=== PATIENT | female | born 1935 | race Caucasian/White ===

== ENCOUNTER 2017-05-02 14:38 | Inpatient (IN) | payer MEDICARE, OTHER ==
[~2017-05-02] VITALS: Ht 172.7 cm; Wt 75.5 kg
[~2017-05-02 14:38] MED LIST: ACET325S8 PO; CARV6.252 PO; ENOX30P SQ; FERR324T4 PO; FLUO20TA20 PO; GUAI600 PO; Hydrocodone/Acetaminophen PO; LEVA750T PO; LEVE750T11 PO; LEVO50TA4 PO; MAGN400T PO; MEMA28CA PO; OMEP20TA39 PO; PRED1TAB PO; WAL-10TA2 PO; ZAFI1TAB2 PO; [UNRECOGNIZED DRUG - CODE] TOP
--- NOTE | 2017-05-02 14:48 | PD ---
HPI Chief Complaint: cough Time Seen by Provider: 14:45 Travel History International Travel<30 days: No Contact w/Intl Traveler<30days: No History of Present Illness HPI 82 y/o female presents with cough over the past 3 days. Her temp today was 99. Patient cannot give me history and she is at her baseline per the long-term staff the ambulance team states. She did not receive any treatments in route. Her vitals were stable. PFSH Past Medical History Arthritis: Yes Depression: Yes COPD: Yes GERD: Yes Hypertension: Yes Psychiatric: Yes Migraines: Yes Renal Failure: Yes (RENAL FAILURE THAT RESOLVED, NORMAL FUNCTION NOW) Seizures: Yes Past Surgical History Abdominal Surgery: Yes (CHOLESTECTOMY) Appendectomy: Yes Cholecystectomy: Yes Gynecologic Surgery: Yes (HYSTERECTOMY) Hysterectomy: Yes Social History Alcohol Use: Yes Tobacco Use: No Substance Use: No Allergies-Medications (Allergen,Severity, Reaction): Coded Allergies: *MDRO Multi-Drug Resistant Organism (Verified Adverse Reaction, Unknown, ) ESBL E.Coli (urine)-06/03/16 Reported Meds & Prescriptions Reported Meds & Active Scripts Active Levaquin 750 Mg Tab (Levofloxacin) 750 Mg Tab 750 Mg PO Q48H Lovenox (Enoxaparin Sodium) 30 Mg/0.3 Ml Inj 30 Mg SQ Q24H [Hydrocodone/Acetaminophen] 1 TAB Tab 1 Tab PO Q4H PRN Reported Prednisone 1 Mg Tab 5 Mg PO DAILY Mucinex 600 Mg Tab (Guaifenesin) 600 Mg Tabcr 600 Mg PO BID 7 Days Accolate 20 mg (Zafirlukast) 20 Mg Tab 10 Mg PO BID TAKE AT LEAST 1 HOUR BEFORE OR 2 HOURS AFTER MEALS Fluoxetine (Fluoxetine HCl) 20MG Cap 20 Mg PO DAILY Hm Omeprazole (Omeprazole) 20 Mg Tab 20 Mg PO DAILY Acetaminophen 325 Mg Tab 650 Mg PO Q4HR Boudreauxs Butt Paste (Zinc Oxide (Topical)) 16 % Oin 16 % TOP BID Levetiracetam Er (Levetiracetam) 750 Mg Tab 750 Mg PO BID Carvedilol 6.25 mg (Carvedilol) 6.25 Mg Tab 1 Tab PO BID Namenda XR (Memantine HCl) 28 Mg Caper 28 Mg PO DAILY Administer without regard to meals. Extended release capsules may be swallowed whole or entire contents of capsule may be sprinkled on applesauce and swallowed immediately; do not chew, crush, or divide. Mag-Ox 400 (Magnesium Oxide) 400 Mg Tab 400 Mg PO DAILY 30 Days Loratadine 10 Mg Tab 10 Mg PO DAILY Levothyroxine 50 mcg (Levothyroxine Sodium) 50 Mcg Tab 50 Mcg PO DAILY Ferrous Sulfate 325 Mg Tab 325 Mg PO DAILY Review of Systems ROS Limitations: Poor Historian Except as stated in HPI: all other systems reviewed are Neg Physical Exam Exam Limitations: Poor Historian Narrative GENERAL: 82-year-old female with frequent cough noted SKIN: Focused skin assessment warm/dry. HEAD: Atraumatic. Normocephalic. EYES: No scleral icterus. No injection or drainage. ENT: No nasal bleeding or discharge. Mucous membranes pink and moist. NECK: Trachea midline. No JVD. CARDIOVASCULAR: Regular rate and rhythm. No murmur appreciated. RESPIRATORY: No accessory muscle use. Coarse Breath sounds equal bilaterally. GASTROINTESTINAL: Abdomen nondistended. NEUROLOGICAL: Moves extremities, eyes open Data Data Last Documented VS Vital Signs Date Time Temp Pulse Resp B/P (MAP) Pulse Ox O2 Delivery O2 Flow Rate FiO2 05/02/17 16:14 94 18 120/59 (79) 94 Room Air 05/02/17 14:56 99.1 Orders Orders Complete Blood Count With Diff (05/02/17 14:46) Comprehensive Metabolic Panel (05/02/17 14:46) B-Type Natriuretic Peptide (05/02/17 14:46) Prothrombin Time / Inr (Pt) (05/02/17 14:46) Magnesium (Mg) (05/02/17 14:46) Influenzae A/B Antigen (05/02/17 14:46) Iv Access Insert/Monitor (05/02/17 14:46) Ecg Monitoring (05/02/17 14:46) Oximetry (05/02/17 14:46) Chest, Single Ap (05/02/17 14:46) Sodium Chloride 0.9% Flush (Ns Flush) (05/02/17 15:00) Methylprednisolone So Succ Inj (Solumedr (05/02/17 15:00) Albuterol-Ipratropium Neb (Duoneb Neb) (05/02/17 15:00) Lactic Acid (05/02/17 14:46) Piperacil-Tazo 4.5 Gm Premix (Zosyn 4.5 (05/02/17 15:38) Azithromycin Inj (Zithromax Inj) (05/02/17 15:38) Admit Order (Ed Use Only) (05/02/17 16:20) Labs Laboratory Tests Test 05/02/17 15:00 White Blood Count 17.2 TH/MM3 Red Blood Count 4.03 MIL/MM3 Hemoglobin 10.6 GM/DL Hematocrit 34.0 % Mean Corpuscular Volume 84.3 FL Mean Corpuscular Hemoglobin 26.2 PG Mean Corpuscular Hemoglobin Concent 31.1 % Red Cell Distribution Width 16.1 % Platelet Count 412 TH/MM3 Mean Platelet Volume 8.0 FL Neutrophils (%) (Auto) 79.0 % Lymphocytes (%) (Auto) 11.3 % Monocytes (%) (Auto) 6.8 % Eosinophils (%) (Auto) 2.4 % Basophils (%) (Auto) 0.5 % Neutrophils # (Auto) 13.6 TH/MM3 Lymphocytes # (Auto) 2.0 TH/MM3 Monocytes # (Auto) 1.2 TH/MM3 Eosinophils # (Auto) 0.4 TH/MM3 Basophils # (Auto) 0.1 TH/MM3 CBC Comment DIFF FINAL Differential Comment Prothrombin Time 10.7 SEC Prothromb Time International Ratio 1.1 RATIO Blood Urea Nitrogen 21 MG/DL Creatinine 1.49 MG/DL Random Glucose 106 MG/DL Total Protein 7.4 GM/DL Albumin 3.1 GM/DL Calcium Level 8.6 MG/DL Magnesium Level 2.0 MG/DL Alkaline Phosphatase 129 U/L Aspartate Amino Transf (AST/SGOT) 19 U/L Alanine Aminotransferase (ALT/SGPT) 25 U/L Total Bilirubin 0.3 MG/DL Sodium Level 142 MEQ/L Potassium Level 3.8 MEQ/L Chloride Level 110 MEQ/L Carbon Dioxide Level 22.6 MEQ/L Anion Gap 9 MEQ/L Estimat Glomerular Filtration Rate 34 ML/MIN Lactic Acid Level 1.7 mmol/L [facility] Medical Decision Making Medical Screen Exam Complete: Yes Emergency Medical Condition: Yes Medical Record Reviewed: Yes (Past history confirmed) Interpretation(s) CBC & BMP Diagram 05/02/17 15:00 Total Protein 7.4, Albumin 3.1 L, Calcium Level 8.6, Magnesium Level 2.0, Alkaline Phosphatase 129 H, Aspartate Amino Transf (AST/SGOT) 19, Alanine Aminotransferase (ALT/SGPT) 25, Total Bilirubin 0.3 Last 24 hours Impressions Chest X-Ray 05/02/17 1446 Signed Impressions: Service Date/Time: Tuesday, May 02, 2017 15:13 - CONCLUSION: Questionable bibasilar atelectasis and/or infiltrate. Aster Flowers MD Differential Diagnosis Pneumonia, URI, COPD exacerbation Narrative Course We will check blood work, chest x-ray, influenza and dose with Solu-Medrol, duonebs and reevaluate Given elevated white count and chest x-ray coming from long-term will dose with Zosyn and azithromycin in place in the hospital for monitoring Physician Communication Physician Communication dr zabala agrees to admit Diagnosis Primary Impression: Pneumonia Qualified Codes: J18.9 - Pneumonia, unspecified organism Additional Impressions: Leukocytosis Qualified Codes: D72.829 - Elevated white blood cell count, unspecified COPD exacerbation Renal insufficiency Admitting Information Admitting Physician Requests: Observation Randi Westfall MD May 02, 2017 14:48
[2017-05-02 14:56] VITALS: BP 173/67; PULSE 83; RESP 20; TEMP 99.1; O2SAT 94
[2017-05-02] MEDS: SODIUM CHLORIDE 0.9% FLUSH 10 ML FLUSH IVF PRN (14:59)
[2017-05-02 15:00] VITALS: RESP 16; O2SAT 100
[2017-05-02] MEDS ORDERED: methylPREDNISolone SOD SUCC 125 MG/2 ML VIAL IV PUSH ONE (15:00)
[2017-05-02 15:14] LABS: AUTOMATED NEUTROPHIL # 13.6 TH/MM3 (1.8-7.7); BASOPHIL # 0.1 TH/MM3 (0-0.2); BASOPHIL % 0.5 % (0.0-2.0); EOSINOPHIL # 0.4 TH/MM3 (0-0.4); EOSINOPHIL % 2.4 % (0.0-4.0); HEMOGLOBIN 10.6 GM/DL (11.6-15.3); LYMPH % 11.3 % (9.0-44.0); MEAN CELL VOLUME 84.3 FL (80.0-100.0); MEAN CORPUSCULAR HEMOGLOBIN 26.2 PG (27.0-34.0); MEAN CORPUSCULAR HGB CONC 31.1 % (32.0-36.0); MONO % 6.8 % (0.0-8.0); MONOCYTE # 1.2 TH/MM3 (0-0.9); PLATELET COUNT 412 TH/MM3 (150-450); RED BLOOD COUNT 4.03 MIL/MM3 (4.00-5.30); RED CELL DISTRIBUTION WIDTH 16.1 % (11.6-17.2); WHITE BLOOD COUNT 17.2 TH/MM3 (4.0-11.0)
[2017-05-02] MEDS: RESP: ALBUTEROL 2.5 MG/IPRATROPIUM 0.5 MG NEB (SCH) INH (15:15)
[2017-05-02 15:22] LABS: INTERNATIONAL NORMALIZED RATIO 1.1 RATIO; PROTHROMBIN TIME - PATIENT 10.7 SEC (9.8-11.6)
--- NOTE | 2017-05-02 15:32 | RADRPT ---
EXAM DATE/TIME: 05/02/2017 15:13 [facility] COMPARISON: CHEST SINGLE AP, August 03, 2015, 11:32. INDICATIONS : Cough. MEDICAL HISTORY : Hypertension. Chronic obstructive pulmonary disease. SURGICAL HISTORY : None. ENCOUNTER: Initial ACUITY: 1 day PAIN SCORE: 5/10 LOCATION: Bilateral chest FINDINGS: There are atherosclerotic calcifications of the aorta due to chronic atherosclerotic disease. Questio nable bibasilar atelectasis and/or infiltrate is identified versus expiratory state of this radiograp h creating these densities. Focal consolidation is not seen. CONCLUSION: Questionable bibasilar atelectasis and/or infiltrate. Aster Flowers MD on May 02, 2017 at 15:29 Board Certified Radiologist. This report was verified electronically.
[2017-05-02 15:34] LABS: ALBUMIN 3.1 GM/DL (3.4-5.0); ALT (GPT) 25 U/L (10-53); AST (GOT) 19 U/L (15-37); BICARBONATE 22.6 MEQ/L (21.0-32.0); BLOOD UREA NITROGEN 21 MG/DL (7-18); CALCIUM 8.6 MG/DL (8.5-10.1); CHLORIDE 110 MEQ/L (98-107); CREATININE 1.49 MG/DL (0.50-1.00); GLOMERULAR FILTRATION RATE 34 ML/MIN (>89); GLUCOSE,RANDOM 106 MG/DL (74-106); SODIUM (NA) 142 MEQ/L (136-145)
[2017-05-02 15:36] LABS: ALKALINE PHOSPHATASE 129 U/L (45-117); TOTAL BILIRUBIN ADULT 0.3 MG/DL (0.2-1.0); TOTAL PROTEIN 7.4 GM/DL (6.4-8.2)
[2017-05-02] MEDS ORDERED: AZITHROMYCIN INJ 500 MG in SODIUM CHLOR 0.9% 250 ML INJ 250 ML IV STA (15:38)
[2017-05-02] MEDS ORDERED: PIPERACIL-TAZO 4.5 GM PREMIX 100 ML IV STA (15:38)
[2017-05-02 15:45] VITALS: BP 136/55; PULSE 90; RESP 21; O2SAT 100
[2017-05-02 16:14] VITALS: BP 120/59; PULSE 94; RESP 18; O2SAT 94
[2017-05-02] MEDS ORDERED: ONDANSETRON HCL 4 MG/2 ML VIAL IV PUSH PRN (16:30)
[2017-05-02] MEDS ORDERED: ACETAMINOPHEN 325 MG TAB PO PRN (16:30)
[2017-05-02] MEDS ORDERED: RESP: ALBUTEROL 1.25 MG/3 ML NEB (PRN) NEB (16:30)
--- NOTE | 2017-05-02 16:40 | HHI.HP ---
HPI Service [facility] Primary Care Physician Unknown Admission Diagnosis pneumonia Diagnoses: (1) Pneumonia Diagnosis: Principal Chief Complaint: cough Travel History International Travel<30 Days: No Contact w/Intl Traveler <30 Da: No Traveled to Known Affected Are: No History of Present Illness patient is a 82 y/o female, [facility] resident with history of COPD and dementia, who was brought to ER from [facility] because of cough. patient is not a good historian and most of the information was obtained from the ER documents. at the time of my evaluation she was resting comfortably with no acute distress. there's no report of fever. she denies any pain but she's complaining of cough. Review of Systems ROS Limitations: Poor Historian Respiratory: COMPLAINS OF: Cough Past Family Social History Past Medical History Seasonal allergies CAD COPD Hypertension GERD Hypothyroidism Cogenital renal failure Conversion disorder with seizures or convulsions UTIs Normal pressure hydrocephalus Past Surgical History Past Surgical History Patient states she had several surgeries. However not able to name them. As per EMR: Cholecystectomy SHIPPING AND RECEIVING COORDINATOR shuntwhich is now removed due to infection Hysterectomy Reported Medications Prednisone 1 Mg Tab 5 Mg PO DAILY Mucinex 600 Mg Tab (Guaifenesin) 600 Mg Tabcr 600 Mg PO BID 7 Days Accolate 20 mg (Zafirlukast) 20 Mg Tab 10 Mg PO BID TAKE AT LEAST 1 HOUR BEFORE OR 2 HOURS AFTER MEALS Fluoxetine (Fluoxetine HCl) 20MG Cap 20 Mg PO DAILY Hm Omeprazole (Omeprazole) 20 Mg Tab 20 Mg PO DAILY Acetaminophen 325 Mg Tab 650 Mg PO Q4HR Boudreauxs Butt Paste (Zinc Oxide (Topical)) 16 % Oin 16 % TOP BID Levetiracetam Er (Levetiracetam) 750 Mg Tab 750 Mg PO BID Carvedilol 6.25 mg (Carvedilol) 6.25 Mg Tab 1 Tab PO BID Namenda XR (Memantine HCl) 28 Mg Caper 28 Mg PO DAILY Administer without regard to meals. Extended release capsules may be swallowed whole or entire contents of capsule may be sprinkled on applesauce and swallowed immediately; do not chew, crush, or divide. Mag-Ox 400 (Magnesium Oxide) 400 Mg Tab 400 Mg PO DAILY 30 Days Loratadine 10 Mg Tab 10 Mg PO DAILY Levothyroxine 50 mcg (Levothyroxine Sodium) 50 Mcg Tab 50 Mcg PO DAILY Ferrous Sulfate 325 Mg Tab 325 Mg PO DAILY Allergies: Coded Allergies: *MDRO Multi-Drug Resistant Organism (Verified Adverse Reaction, Unknown, ) ESBL E.Coli (urine)-06/03/16 Active Ordered Medications Inpatient Medications Albuterol/ Ipratropium (Duoneb Neb) 1 ampule Q15M INH Last administered on 15:15; Start 05/02/17 at 15:00; Stop 05/02/17 at 15:16; Status DC Azithromycin 500 mg/Sodium Chloride 250 ml @ 250 mls/hr ONCE STAT IV Last administered on 05/02/17at 15:58; Start 05/02/17 at 15:38; Stop 05/02/17 at 16:37 Methylprednisolone Sodium Succinate (SoluMEDROL INJ) 125 mg ONCE ONCE IV PUSH Last administered on 05/02/17at 14:59; Start 05/02/17 at 15:00; Stop 05/02/17 at 15: 01; Status DC Piperacillin Sod/ Tazobactam Sod 100 ml @ 200 mls/hr ONCE STAT IV Last administered on 05/02/17at 15:59; Start 05/02/17 at 15:38; Stop 05/02/17 at 16:07; Status DC Sodium Chloride (NS Flush) 2 ml UNSCH PRN IVF FLUSH AFTER USING IV ACCESS Last administered on 05/02/17at 14:59; Start 05/02/17 at 15:00 Social History correction resident. Physical Exam Vital Signs Vital Signs Date Time Temp Pulse Resp B/P (MAP) Pulse Ox O2 Delivery O2 Flow Rate FiO2 05/02/17 16:14 94 18 120/59 (79) 94 Room Air 05/02/17 15:45 90 21 136/55 (82) 100 Aerosol Mask 05/02/17 15:00 20 98 Room Air 05/02/17 15:00 16 100 Room Air 05/02/17 14:56 99.1 83 20 173/67 (102) 94 Physical Exam GENERAL:elderly female, in no apparent distress. SKIN: No rashes, ecchymoses or lesions. Cool and dry. HEAD: Atraumatic. Normocephalic. No temporal or scalp tenderness. EYES: Pupils equal round and reactive. Extraocular motions intact. No scleral icterus. No injection or drainage. ENT: Nose without bleeding, purulent drainage or septal hematoma. Throat without erythema, tonsillar hypertrophy or exudate. Uvula midline. Airway patent. NECK: Trachea midline. No JVD or lymphadenopathy. Supple, nontender, no meningeal signs. CARDIOVASCULAR: Regular rate and rhythm without murmurs, gallops, or rubs. RESPIRATORY: Clear to auscultation. Breath sounds equal bilaterally. No wheezes , rales, or rhonchi. GASTROINTESTINAL: Abdomen soft, non-tender, nondistended. No hepato-splenomegaly , or palpable masses. No guarding. MUSCULOSKELETAL: Extremities without clubbing, cyanosis, or edema. No joint tenderness, effusion, or edema noted. No calf tenderness. Negative Homans sign bilaterally. NEUROLOGICAL: Awake and alert.oriented to place and partly to place. Laboratory Laboratory Tests Test 05/02/17 15:00 White Blood Count 17.2 Red Blood Count 4.03 Hemoglobin 10.6 Hematocrit 34.0 Mean Corpuscular Volume 84.3 Mean Corpuscular Hemoglobin 26.2 Mean Corpuscular Hemoglobin Concent 31.1 Red Cell Distribution Width 16.1 Platelet Count 412 Mean Platelet Volume 8.0 Neutrophils (%) (Auto) 79.0 Lymphocytes (%) (Auto) 11.3 Monocytes (%) (Auto) 6.8 Eosinophils (%) (Auto) 2.4 Basophils (%) (Auto) 0.5 Neutrophils # (Auto) 13.6 Lymphocytes # (Auto) 2.0 Monocytes # (Auto) 1.2 Eosinophils # (Auto) 0.4 Basophils # (Auto) 0.1 CBC Comment DIFF FINAL Differential Comment Prothrombin Time 10.7 Prothromb Time International Ratio 1.1 Blood Urea Nitrogen 21 Creatinine 1.49 Random Glucose 106 Total Protein 7.4 Albumin 3.1 Calcium Level 8.6 Magnesium Level 2.0 Alkaline Phosphatase 129 Aspartate Amino Transf (AST/SGOT) 19 Alanine Aminotransferase (ALT/SGPT) 25 Total Bilirubin 0.3 Sodium Level 142 Potassium Level 3.8 Chloride Level 110 Carbon Dioxide Level 22.6 Anion Gap 9 Estimat Glomerular Filtration Rate 34 Lactic Acid Level 1.7 Date/Time Source Procedure Growth Status 05/02/17 15:08 Nasal Aspirate Influenza Types A,B Antigen (NORI) - Final NEGATIVE FOR FLU A AND B ANTIGEN.... Complete Result Diagram: 05/02/17 1500 05/02/17 1500 Imaging Last Impressions Chest X-Ray 05/02/17 1446 Signed Impressions: Service Date/Time: Tuesday, May 02, 2017 15:13 - CONCLUSION: Questionable bibasilar atelectasis and/or infiltrate. MD Enedelia Buckley VTE Risk Assessment Enedelia VTE Risk Assessment: Mod/High Risk (score >= 2) Caprini Risk Assessment Model Point Value = 1 Point Value = 2 Point Value = 3 Point Value = 5 Age 41-60 Minor surgery BMI > 25 kg/m2 Swollen legs Varicose veins or History of unexplained or recurrent spontaneous Oral contraceptives or hormone replacement Sepsis (< 1 month) Serious lung disease, including pneumonia (< 1 month) Abnormal pulmonary function Acute myocardial infarction Congestive heart failure (< 1 month) History of inflammatory bowel disease Medical patient at bed rest Age 61-74 Arthroscopic surgery Major open surgery (> 45 min) Laparoscopic surgery (> 45 min) Malignancy Confined to bed (> 72 hours) Immobilizing plaster cast Central venous access Age >= 75 History of VTE Family history of VTE Factor V Leiden Prothrombin [id number] Lupus anticoagulant Anticardiolipin antibodies Elevated serum homocysteine Heparin-induced thrombocytopenia Other congenital or acquired thrombophilia Stroke (< 1 month) Elective arthroplasty Hip, pelvis, or leg fracture Acute spinal cord injury (< 1 month) Prophylaxis Regimen Total Risk Factor Score Risk Level Prophylaxis Regimen 0-1 Low Early ambulation 2 Moderate Order ONE of the following: *Sequential Compression Device (SCD) *Heparin 5000 units SQ BID 3-4 Higher Order ONE of the following medications: *Heparin 5000 units SQ TID *Enoxaparin/Lovenox 40 mg SQ daily (WT < 150 kg, CrCl > 30 mL/min) *Enoxaparin/Lovenox 30 mg SQ daily (WT < 150 kg, CrCl > 10-29 mL/min) *Enoxaparin/Lovenox 30 mg SQ BID (WT < 150 kg, CrCl > 30 mL/min) AND/OR *Sequential Compression Device (SCD) 5 or more Highest Order ONE of the following medications: *Heparin 5000 units SQ TID (Preferred with Epidurals) *Enoxaparin/Lovenox 40 mg SQ daily (WT < 150 kg, CrCl > 30 mL/min) *Enoxaparin/Lovenox 30 mg SQ daily (WT < 150 kg, CrCl > 10-29 mL/min) *Enoxaparin/Lovenox 30 mg SQ BID (WT < 150 kg, CrCl > 30 mL/min) AND *Sequential Compression Device (SCD) Assessment and Plan Assessment and Plan A/P - possible bibasilar pneumonia with history of COPD continue with broad spectrum IV antibiotics; will deescalate the antibiotic regimen soon if remains afebrile and stable. continue with prednisone- start on neb treatment. -CKD- renal function at her baseline- will monitor -hypertension/CAD/seizure disorder/hypothyroidism/ dementia; will resume home meds. -DVT prophylaxis with subq Lovenox Discussed Condition With ER physician and the patient. Problem Qualifiers (1) Pneumonia: Qualified Codes: J18.9 - Pneumonia, unspecified organism Harris Mane MD May 02, 2017 16:40
[2017-05-02] MEDS: ENOXAPARIN SODIUM 30 MG/0.3 ML SYRINGE SQ SCH (17:18)
[2017-05-02 18:18] VITALS: BP 136/75; PULSE 90; RESP 28; TEMP 99.1; O2SAT 92
[2017-05-02] MEDS: RESP: ALBUTEROL 2.5 MG/IPRATROPIUM 0.5 MG NEB (SCH) NEB (19:37)
[2017-05-02] MEDS ORDERED: LEVETIRACETAM 750 MG PO SCH (21:00)
[2017-05-02 21:16] VITALS: BP 128/78; PULSE 69; RESP 18; RESP 26; TEMP 98.3; O2SAT 91
[2017-05-02] MEDS: CARVEDILOL 6.25 MG TAB PO SCH (21:17)
[2017-05-02] MEDS ORDERED: PILL SPLITTER OTHER PRN (21:30)
[2017-05-02] MEDS: ZAFIRLUKAST 20 MG TAB PO SCH (21:45)
[2017-05-03] VITALS (9 sets, daily range): BP systolic 103–147; BP diastolic 47–89; PULSE 58–90; RESP 18–28; TEMP 97.9–98.8; O2SAT 91–99
[2017-05-03] MEDS: BENZONATATE 100 MG CAP PO PRN ×3 (00:24→22:31)
[2017-05-03] MEDS: PIPERACIL-TAZO 3.375 GM PREMIX 50 ML IV SCH ×5 (00:24→22:31)
[2017-05-03] MEDS: LEVOTHYROXINE SODIUM 50 MCG TAB PO SCH (04:28)
[2017-05-03 04:47] LABS: AUTOMATED NEUTROPHIL # 10.8 TH/MM3 (1.8-7.7); BASOPHIL % 0.4 % (0.0-2.0); EOSINOPHIL % 0.1 % (0.0-4.0); HEMATOCRIT 31.3 % (35.0-46.0); HEMOGLOBIN 10.2 GM/DL (11.6-15.3); LYMPH % 6.5 % (9.0-44.0); LYMPHOCYTE # 0.8 TH/MM3 (1.0-4.8); MEAN CELL VOLUME 83.2 FL (80.0-100.0); MEAN CORPUSCULAR HEMOGLOBIN 27.3 PG (27.0-34.0); MEAN CORPUSCULAR HGB CONC 32.7 % (32.0-36.0); MEAN PLATELET VOLUME 8.4 FL (7.0-11.0); MONOCYTE # 0.1 TH/MM3 (0-0.9); PLATELET COUNT 322 TH/MM3 (150-450); RED BLOOD COUNT 3.76 MIL/MM3 (4.00-5.30); RED CELL DISTRIBUTION WIDTH 16.1 % (11.6-17.2); WHITE BLOOD COUNT 11.8 TH/MM3 (4.0-11.0)
[2017-05-03 05:00] LABS: BICARBONATE 22.3 MEQ/L (21.0-32.0); CALCIUM 9.1 MG/DL (8.5-10.1); CREATININE 1.44 MG/DL (0.50-1.00)
[2017-05-03] MEDS: RESP: ALBUTEROL 2.5 MG/IPRATROPIUM 0.5 MG NEB (SCH) NEB ×3 (08:32→20:51)
[2017-05-03] MEDS ORDERED: MEMANTINE 28 MG PO SCH (09:00)
[2017-05-03] MEDS: FLUoxetine HCL 20 MG CAP PO SCH (09:09)
[2017-05-03] MEDS: ZAFIRLUKAST 20 MG TAB PO SCH ×2 (09:10→20:21)
[2017-05-03] MEDS: PANTOPRAZOLE SOD 20 MG DELAYED RELEASE TAB PO SCH (09:10)
[2017-05-03] MEDS: predniSONE 1 MG TAB PO SCH (09:11)
[2017-05-03] MEDS: FERROUS SULFATE 325 MG (65 MG ELEMENTAL IRON) TAB PO SCH (09:11)
[2017-05-03] MEDS: LORATADINE 10 MG TAB PO SCH (09:15)
[2017-05-03] MEDS: CARVEDILOL 6.25 MG TAB PO SCH ×2 (09:15→20:21)
--- NOTE | 2017-05-03 10:06 | HHI.PR ---
Subjective Remarks Follow-up for possible pneumonia Overnight patient required oxygen. Patient seems to be a poor historian. She denies any shortness of breathing. She stated that she's been having a chronic cough. Otherwise feels she is doing well. Nurse spoke to patient's rehabilitation center and stated that patient was not on any oxygen prior. Also the patient was seen here she was not on any oxygen. She was also had her walk test done in which she was approximately 84 sitting in upright position. Otherwise patient has no other complaints. Discussed case with patient's nurse and respiratory therapist. Objective Vitals Vital Signs Date Time Temp Pulse Resp B/P (MAP) Pulse Ox O2 Delivery O2 Flow Rate FiO2 05/03/17 08:56 98.6 58 18 110/53 (72) 99 05/03/17 08:41 4.00 05/03/17 08:32 94 Nasal Cannula 5.00 05/03/17 04:40 97.9 90 28 131/68 (89) 91 05/03/17 00:00 97.9 87 27 122/64 (83) 93 05/02/17 21:16 98.3 69 26 128/78 (95) 91 05/02/17 19:42 Nasal Cannula 3.00 05/02/17 18:18 99.1 90 28 136/75 (95) 92 05/02/17 17:54 05/02/17 16:14 94 18 120/59 (79) 94 Room Air 05/02/17 15:45 90 21 136/55 (82) 100 Aerosol Mask 05/02/17 15:00 20 98 Room Air 05/02/17 15:00 16 100 Room Air 05/02/17 14:56 99.1 83 20 173/67 (102) 94 I/O 05/02/17 05/02/17 05/02/17 05/03/17 05/03/17 05/03/17 07:00 15:00 23:00 07:00 15:00 23:00 Intake Total 550 ml Balance 550 ml Intake Oral 300 ml IV Total 250 ml Result Diagram: 05/03/17 0345 05/03/17 0345 Objective Remarks GENERAL: in NAD CARDIOVASCULAR: Regular rate and rhythm without murmurs, gallops, or rubs. RESPIRATORY: Breath sounds equal bilaterally. No accessory muscle use. GASTROINTESTINAL: Abdomen soft, non-tender, nondistended. MUSCULOSKELETAL: No cyanosis, or edema. Medications and IVs Current Medications Sodium Chloride (NS Flush) 2 ml UNSCH PRN IVF FLUSH AFTER USING IV ACCESS Last administered on 05/02/17at 14:59; Start 05/02/17 at 15:00 Methylprednisolone Sodium Succinate (SoluMEDROL INJ) 125 mg ONCE ONCE IV PUSH Last administered on 05/02/17at 14:59; Start 05/02/17 at 15:00; Stop 05/02/17 at 15: 01; Status DC Albuterol/ Ipratropium (Duoneb Neb) 1 ampule Q15M INH Last administered on at 15:15; Start 05/02/17 at 15:00; Stop 05/02/17 at 15:16; Status DC Piperacillin Sod/ Tazobactam Sod 100 ml @ 200 mls/hr ONCE STAT IV Last administered on 05/02/17at 15:59; Start 05/02/17 at 15:38; Stop 05/02/17 at 16:07; Status DC Azithromycin 500 mg/Sodium Chloride 250 ml @ 250 mls/hr ONCE STAT IV Last administered on 05/02/17at 15:58; Start 05/02/17 at 15:38; Stop 05/02/17 at 16:39; Status DC Albuterol/ Ipratropium (Duoneb Neb) 1 ampule Q6HR WHILE AWAKE NEB NEB Last administered on 05/03/17at 08:32; Start 05/02/17 at 20:00 Albuterol Sulfate (Albuterol Neb) 1.25 mg Q2HR NEB PRN NEB SHORTNESS OF BREATH ; Start 05/02/17 at 16:30 Ondansetron HCl (Zofran Inj) 4 mg Q8HR PRN IV PUSH NAUSEA; Start 05/02/17 at 16: 30 Acetaminophen (Tylenol) 650 mg Q4H PRN PO FEVER; Start 05/02/17 at 16:30 Piperacillin Sod/ Tazobactam Sod 50 ml @ 100 mls/hr Q6H IV Last administered on 05/03/17at 09:16; Start 05/02/17 at 22:00 Carvedilol (Coreg) 6.25 mg BID PO Last administered on 05/03/17at 09:15; Start at 21:00 Enoxaparin Sodium (Lovenox Inj) 30 mg Q24H SQ Last administered on 05/02/17 17: 18; Start 05/02/17 at 17:00 Levothyroxine Sodium (Synthroid) 50 mcg DAILY@0600 PO Last administered on at 04:28; Start 05/03/17 at 06:00 Loratadine (Claritin) 10 mg DAILY PO Last administered on 05/03/17at 09:15; Start 05/03/17 at 09:00 Prednisone (Deltasone) 5 mg DAILY PO Last administered on 05/03/17at 09:11; Start 05/03/17 at 09:00 Zafirlukast (Accolate) 10 mg BID PO Last administered on 05/03/17at 09:10; Start 05/02/17 at 21:00 Ferrous Sulfate (Ferrous Sulfate) 325 mg DAILY PO Last administered on at 09:11; Start 05/03/17 at 09:00 Fluoxetine HCl (PROzac) 20 mg DAILY PO Last administered on 05/03/17at 09:09; Start 05/03/17 at 09:00 Patient Own Medication PT OWN MED: LEVETIRACETAM 750MG ER... BID PO ; Start 05/02 at 21:00; Status Future Hold Patient Own Medication PT OWN MED: MEMAN... DAILY PO ; Start 05/03/17 at 09:00; Status Future Hold Pantoprazole Sodium (Protonix) 20 mg DAILY PO Last administered on 05/03/17at 09: 10; Start 05/03/17 at 09:00 Benzonatate (Tessalon) 100 mg TID PRN PO COUGH Last administered on 05/03/17at 06 :49; Start 05/02/17 at 16:45 Miscellaneous (Pill Splitter) 1 ea UNSCH PRN OTHER SEE LABEL COMMENTS; Start at 21:30 Guaifenesin (Mucinex Er) 600 mg BID PO Last administered on 05/03/17at 10:43; Start 05/03/17 at 11:00 A/P Problem List: (1) Pneumonia ICD Code: J18.9 - Pneumonia, unspecified organism Status: Acute Assessment and Plan This is a 82-year-old female who is poor historian and presented with cough and now has acute respiratory failure with hypoxia Acute respiratory failure with hypoxia -Chest x-ray done yesterday showed possible bibasilar pneumonia. She was treated empirically with IV antibiotics with azithromycin and Zosyn but developed hypoxia and required oxygen. -Patient is not on any home oxygen and she felt a walk test. -Will get a stat chest x-ray and adjust medication based on results. Labs reviewed leukocytosis improved. Clinically she is in no distress. Continue to monitor. -Transfer to [facility]. ? bibasilar pneumonia with history of COPD -Patient is requiring more oxygen. Pending stat chest x-ray. May add vancomycin. Continue with azithromycin and Zosyn. History of COPD -Patient lungs are clear. with home dose of prednisone. CKD - renal function at her baseline -Avoid nephrotoxins. -Continue to trend Cr. hypertension/CAD/seizure disorder/hypothyroidism/ dementia -Continue with home medication DVT prophylaxis with subq Lovenox Discharge Planning Patient became hypoxic. Due to worsening of condition will need to be transferred to [facility]. Discussed case with patient's nurse. Problem Qualifiers (1) Pneumonia: Qualified Codes: J18.9 - Pneumonia, unspecified organism Laya Awan MD May 03, 2017 10:06
[2017-05-03] MEDS: guaiFENesin E.R. 600 MG TAB PO SCH ×2 (10:43→20:21)
--- NOTE | 2017-05-03 12:57 | RADRPT ---
EXAM DATE/TIME: 05/03/2017 11:48 [facility] COMPARISON: No previous studies available for comparison. INDICATIONS : Cough, Hypoxia MEDICAL HISTORY : Hypertension. Chronic obstructive pulmonary disease. SURGICAL HISTORY : None. ENCOUNTER: Subsequent ACUITY: 2 days PAIN SCORE: 0/10 LOCATION: chest FINDINGS: Minimal patchiness is noted within the right lung base consistent with atelectasis and/or minimal inf iltrate. The heart is mildly prominent. No pulmonary edema is noted. Degenerative changes are noted t hroughout the thoracic spine. CONCLUSION: Minimal patchiness within the right lung base consistent with atelectasis and/or minimal infiltrate. Mild cardiomegaly. Scooby Puri MD on May 03, 2017 at 12:54 Board Certified Radiologist. This report was verified electronically.
[2017-05-03] MEDS: ENOXAPARIN SODIUM 30 MG/0.3 ML SYRINGE SQ SCH (16:11)
[2017-05-04] MEDS: PIPERACIL-TAZO 3.375 GM PREMIX 50 ML IV SCH ×4 (03:12→22:22)
[2017-05-04] MEDS: guaiFENesin/CODEINE SYRUP 200 MG/20 MG/10 ML CUP PO PRN ×3 (03:12→13:43)
[2017-05-04] MEDS: LEVOTHYROXINE SODIUM 50 MCG TAB PO SCH (06:25)
[2017-05-04] MEDS: RESP: ALBUTEROL 2.5 MG/IPRATROPIUM 0.5 MG NEB (SCH) NEB ×3 (07:25→19:54)
[2017-05-04 07:27] VITALS: O2SAT 94
[2017-05-04 07:43] VITALS: BP 115/62; PULSE 67; RESP 20; TEMP 98.5; O2SAT 92
[2017-05-04] MEDS: SODIUM CHLORIDE 0.9% FLUSH 10 ML FLUSH IVF PRN (08:16)
[2017-05-04] MEDS: predniSONE 1 MG TAB PO SCH (08:16)
[2017-05-04] MEDS: ZAFIRLUKAST 20 MG TAB PO SCH ×2 (08:17→22:21)
[2017-05-04] MEDS: BENZONATATE 100 MG CAP PO PRN (08:17)
[2017-05-04] MEDS: FERROUS SULFATE 325 MG (65 MG ELEMENTAL IRON) TAB PO SCH (08:17)
[2017-05-04] MEDS: CARVEDILOL 6.25 MG TAB PO SCH ×2 (08:17→22:30)
[2017-05-04] MEDS: FLUoxetine HCL 20 MG CAP PO SCH (08:17)
[2017-05-04] MEDS: LORATADINE 10 MG TAB PO SCH (08:17)
[2017-05-04] MEDS: PANTOPRAZOLE SOD 20 MG DELAYED RELEASE TAB PO SCH (08:17)
[2017-05-04] MEDS: guaiFENesin E.R. 600 MG TAB PO SCH ×2 (08:17→22:21)
--- NOTE | 2017-05-04 08:55 | HHI.PR ---
Subjective Remarks Follow-up for pneumonia and cough Patient continues to cough continuously. She feels that it is better. Her diet was changed yesterday to puree diet. She requires more oxygen at 5 L. She denies any shortness of breathing. Objective Vitals Vital Signs Date Time Temp Pulse Resp B/P (MAP) Pulse Ox O2 Delivery O2 Flow Rate FiO2 05/04/17 07:43 98.5 67 20 115/62 (79) 92 05/04/17 07:27 94 Nasal Cannula 5.00 05/03/17 23:26 98.7 78 24 147/89 (108) 92 05/03/17 20:53 94 Nasal Cannula 5.00 05/03/17 20:04 98.8 78 28 138/78 (98) 92 05/03/17 14:56 98.2 61 18 103/47 (65) 95 05/03/17 13:21 98.1 90 18 108/52 (70) 97 05/03/17 08:56 98.6 58 18 110/53 (72) 99 I/O 05/03/17 05/03/17 05/03/17 05/04/17 05/04/17 05/04/17 07:00 15:00 23:00 07:00 15:00 23:00 Intake Total 400 ml Balance 400 ml Intake Oral 400 ml # Voids 2 Result Diagram: 05/03/17 0345 05/03/17 0345 Objective Remarks GENERAL: in NAD CARDIOVASCULAR: Regular rate and rhythm without murmurs, gallops, or rubs. RESPIRATORY: Anterior lungs with rhonchi.. No accessory muscle use. GASTROINTESTINAL: Abdomen soft, non-tender, nondistended. MUSCULOSKELETAL: No cyanosis, or edema. Medications and IVs Current Medications Sodium Chloride (NS Flush) 2 ml UNSCH PRN IVF FLUSH AFTER USING IV ACCESS Last administered on 05/04/17at 08:16; Start 05/02/17 at 15:00 Methylprednisolone Sodium Succinate (SoluMEDROL INJ) 125 mg ONCE ONCE IV PUSH Last administered on 05/02/17at 14:59; Start 05/02/17 at 15:00; Stop 05/02/17 at 15: 01; Status DC Albuterol/ Ipratropium (Duoneb Neb) 1 ampule Q15M INH Last administered on at 15:15; Start 05/02/17 at 15:00; Stop 05/02/17 at 15:16; Status DC Piperacillin Sod/ Tazobactam Sod 100 ml @ 200 mls/hr ONCE STAT IV Last administered on 05/02/17at 15:59; Start 05/02/17 at 15:38; Stop 05/02/17 at 16:07; Status DC Azithromycin 500 mg/Sodium Chloride 250 ml @ 250 mls/hr ONCE STAT IV Last administered on 05/02/17at 15:58; Start 05/02/17 at 15:38; Stop 05/02/17 at 16:39; Status DC Albuterol/ Ipratropium (Duoneb Neb) 1 ampule Q6HR WHILE AWAKE NEB NEB Last administered on 05/04/17at 07:25; Start 05/02/17 at 20:00 Albuterol Sulfate (Albuterol Neb) 1.25 mg Q2HR NEB PRN NEB SHORTNESS OF BREATH Last administered on 05/04/17 05:13; Start 05/02/17 at 16:30 Ondansetron HCl (Zofran Inj) 4 mg Q8HR PRN IV PUSH NAUSEA; Start 05/02/17 at 16: 30 Acetaminophen (Tylenol) 650 mg Q4H PRN PO FEVER; Start 05/02/17 at 16:30 Piperacillin Sod/ Tazobactam Sod 50 ml @ 100 mls/hr Q6H IV Last administered on 05/04/17at 03:12; Start 05/02/17 at 22:00 Carvedilol (Coreg) 6.25 mg BID PO Last administered on 05/04/17 08:17; Start at 21:00 Enoxaparin Sodium (Lovenox Inj) 30 mg Q24H SQ Last administered on 05/03/17at 16: 11; Start 05/02/17 at 17:00 Levothyroxine Sodium (Synthroid) 50 mcg DAILY@0600 PO Last administered on 06:25; Start 05/03/17 at 06:00 Loratadine (Claritin) 10 mg DAILY PO Last administered on 05/04/17 08:17; Start 05/03/17 at 09:00 Prednisone (Deltasone) 5 mg DAILY PO Last administered on 2/6/18at 08:16; Start 05/03/17 at 09:00 Zafirlukast (Accolate) 10 mg BID PO Last administered on 05/04/17 08:17; Start 05/02/17 at 21:00 Ferrous Sulfate (Ferrous Sulfate) 325 mg DAILY PO Last administered on 08:17; Start 05/03/17 at 09:00 Fluoxetine HCl (PROzac) 20 mg DAILY PO Last administered on 05/04/17 08:17; Start 05/03/17 at 09:00 Patient Own Medication PT OWN MED: LEVETIRACETAM 750MG ER... BID PO ; Start 05/02 at 21:00; Status Future Hold Patient Own Medication PT OWN MED: MEMAN... DAILY PO ; Start 05/03/17 at 09:00; Status Future Hold Pantoprazole Sodium (Protonix) 20 mg DAILY PO Last administered on 05/04/17at 08: 17; Start 05/03/17 at 09:00 Benzonatate (Tessalon) 100 mg TID PRN PO COUGH Last administered on 05/04/17at 08 :17; Start 05/02/17 at 16:45 Miscellaneous (Pill Splitter) 1 ea UNSCH PRN OTHER SEE LABEL COMMENTS; Start at 21:30 Guaifenesin (Mucinex Er) 600 mg BID PO Last administered on 05/04/17at 08:17; Start 05/03/17 at 11:00 Guaifenesin/ Codeine Phosphate (Robitussin Ac 200-20 Mg/10 ml Liq) 10 ml Q4H PRN PO cough Last administered on 05/04/17at 08:16; Start 05/03/17 at 15:30 A/P Problem List: (1) Pneumonia ICD Code: J18.9 - Pneumonia, unspecified organism Status: Acute Assessment and Plan This is a 82-year-old female who is poor historian and presented with cough and now has acute respiratory failure with hypoxia Acute respiratory failure with hypoxia -most likely secondary to aspiration pneumonia. Patient was on regular diet and had speech eval recommend puree. -Chest x-ray done yesterday showed possible bibasilar pneumonia. She was treated empirically with IV antibiotics with azithromycin and Zosyn but developed hypoxia and required oxygen. -Patient is not on any home oxygen and she failed walk test. -repeat cxr was stable. -patient on 5 L now and has some rhonchi. will repeat CXR. consult field cane scaler helper. ? bibasilar pneumonia with history of COPD -Patient is requiring more oxygen. ? aspiration PNA. on azithromycin and zosyn. see above. History of COPD -Patient lungs are clear. with home dose of prednisone. CKD - renal function at her baseline -Avoid nephrotoxins. -Continue to trend Cr. hypertension/CAD/seizure disorder/hypothyroidism/ dementia -Continue with home medication DVT prophylaxis with subq Lovenox Discharge Planning pending transfer to med/surg. Problem Qualifiers (1) Pneumonia: Qualified Codes: J18.9 - Pneumonia, unspecified organism Laya Awan MD May 04, 2017 08:55
--- NOTE | 2017-05-04 10:54 | RADRPT ---
EXAM DATE/TIME: 05/04/2017 10:17 [facility] COMPARISON: CHEST PA & LAT, May 03, 2017, 11:48. INDICATIONS : Cough, short of breath. MEDICAL HISTORY : Hypertension. Chronic obstructive pulmonary disease SURGICAL HISTORY : None. ENCOUNTER: Subsequent ACUITY: 3 days PAIN SCORE: 0/10 LOCATION: Bilateral chest FINDINGS: Stable elevation of the right diaphragm. Slight bibasilar parenchymal opacity. Mild central vascular congestion and interstitial prominence which is grossly unchanged. Cardiac contours are stable. CONCLUSION: Little change from yesterday's exam Delmar Berrios MD on May 04, 2017 at 10:51 Board Certified Radiologist. This report was verified electronically.
[2017-05-04 11:41] VITALS: BP 106/50; PULSE 57; RESP 19; TEMP 98.8; O2SAT 92
[2017-05-04 12:54] LABS: HEMATOCRIT 29.8 % (35.0-46.0); MEAN CELL VOLUME 83.1 FL (80.0-100.0); MEAN CORPUSCULAR HEMOGLOBIN 27.8 PG (27.0-34.0); MEAN CORPUSCULAR HGB CONC 33.4 % (32.0-36.0); MEAN PLATELET VOLUME 8.3 FL (7.0-11.0); PLATELET COUNT 339 TH/MM3 (150-450); RED BLOOD COUNT 3.59 MIL/MM3 (4.00-5.30); WHITE BLOOD COUNT 15.7 TH/MM3 (4.0-11.0)
[2017-05-04 13:14] LABS: BICARBONATE 22.1 MEQ/L (21.0-32.0); CALCIUM 8.2 MG/DL (8.5-10.1); CREATININE 1.55 MG/DL (0.50-1.00)
[2017-05-04 15:40] VITALS: BP 106/50; PULSE 69; RESP 20; TEMP 98.6; O2SAT 93
[2017-05-04] MEDS: ENOXAPARIN SODIUM 30 MG/0.3 ML SYRINGE SQ SCH (16:06)
[2017-05-04 19:55] VITALS: O2SAT 93
[2017-05-04 20:00] VITALS: BP 111/66; PULSE 85; RESP 20; TEMP 97.5; O2SAT 95
--- NOTE | 2017-05-04 20:05 | MB ---
cc: PABLO SHAH DATE OF CONSULTATION: 05/04/2017 REASON FOR CONSULTATION: Pneumonia. COPD. HISTORY OF PRESENT ILLNESS Ms. Patel is an 82-year-old female with known history of COPD and dementia. She comes to the emergency room complaining of cough, persistent. Chest x-ray revealed evidence of bibasilar atelectasis or infiltrate with evidence of hypoxemia presently on oxygen therapy. PAST MEDICAL HISTORY: 1. COPD. 2. Hypertension. 3. Coronary artery disease. 4. Hypothyroidism. 5. Chronic kidney disease. 6. Seizure disorder. 7. Normal pressure hydrocephalus. MEDICATIONS AT HOME: 1. Prednisone 1 milligram. 2. Mucinex. 3. Accolate. 4. Fluoxetine. 5. Omeprazole. 6. Tylenol p.r.n. 7. Namenda. 8. Loratadine. 9. Levothyroxine. 10. Ferrous sulfate. ALLERGIES: MDRO REVIEW OF SYSTEMS 12-point review of systems as per HPI and past history otherwise negative. PHYSICAL EXAMINATION: Pulse 90, temperature upon presentation 99.1, respiratory rate 18, blood pressure 130/60. Oxygen saturation 94% on room air. HEENT: Unremarkable. Eyes without icterus. Neck: Without adenopathy, thyroid enlargement. Central trachea. Chest: Few rhonchi at bases. Cardiac exam: PMI distant. S1-S2 audible, no murmur, no rub. Abdomen: Lax, bowel sounds audible. Extremities: No clubbing, cyanosis or edema. LABORATORY DATA White count 17,000, hemoglobin 10, hematocrit 34, platelets 412,000, sodium 142, potassium 3.8, BUN 21, creatinine 1.49. Chest x-ray: Bibasilar atelectasis. IMPRESSION 1. COPD. 2. Bibasilar atelectasis or pneumonia. 3. Dementia. 4. Chronic kidney disease. 5. Hypothyroidism. 6. Coronary artery disease. 7. Seizure disorder. PLAN: The patient seems improving. Her cough is persistent but better, antibiotic therapy has been initiated and appropriately so, as well as bronchodilator therapy. If she continues to improve, may be changed to oral antibiotic therapy, send home and follow up as outpatient. I do thank you for asking me to partake in Ms. Patel's care. MD GAGE Jin/LENNY /6:44 PM /7:40 PM
[2017-05-05] VITALS (8 sets, daily range): BP systolic 93–140; BP diastolic 44–65; PULSE 58–67; RESP 14–18; TEMP 97.2–98.7; O2SAT 92–97
[2017-05-05] MEDS: PIPERACIL-TAZO 3.375 GM PREMIX 50 ML IV SCH ×4 (03:36→21:45)
[2017-05-05] MEDS: LEVOTHYROXINE SODIUM 50 MCG TAB PO SCH (05:40)
[2017-05-05] MEDS: RESP: ALBUTEROL 2.5 MG/IPRATROPIUM 0.5 MG NEB (SCH) NEB ×3 (07:51→21:56)
[2017-05-05 08:59] LABS: BICARBONATE 23.2 MEQ/L (21.0-32.0); CALCIUM 8.4 MG/DL (8.5-10.1); CREATININE 1.52 MG/DL (0.50-1.00)
[2017-05-05] MEDS: guaiFENesin E.R. 600 MG TAB PO SCH ×2 (09:16→21:48)
[2017-05-05] MEDS: FERROUS SULFATE 325 MG (65 MG ELEMENTAL IRON) TAB PO SCH (09:16)
[2017-05-05] MEDS: LORATADINE 10 MG TAB PO SCH (09:16)
[2017-05-05] MEDS: ZAFIRLUKAST 20 MG TAB PO SCH ×2 (09:16→21:46)
[2017-05-05] MEDS: CARVEDILOL 6.25 MG TAB PO SCH ×2 (09:16→21:47)
[2017-05-05] MEDS: PANTOPRAZOLE SOD 20 MG DELAYED RELEASE TAB PO SCH (09:16)
[2017-05-05] MEDS: FLUoxetine HCL 20 MG CAP PO SCH (09:16)
[2017-05-05] MEDS: SODIUM CHLORIDE 0.9% FLUSH 10 ML FLUSH IVF PRN (09:17)
--- NOTE | 2017-05-05 09:34 | HHI.PR ---
Subjective Remarks Follow-up for pneumonia and hypoxia Patient stated that cough has improved. She has no other complaints. At baseline she is in a wheelchair. No fevers or chills. Her nurses at the bedside during the interview. Objective Vitals Vital Signs Date Time Temp Pulse Resp B/P (MAP) Pulse Ox O2 Delivery O2 Flow Rate FiO2 05/05/17 07:52 97 Nasal Cannula 5.00 05/05/17 07:40 98.5 59 18 113/52 (72) 96 05/05/17 04:00 97.9 63 17 93/44 (60) 05/05/17 00:40 97.9 66 17 106/44 (64) 97 05/04/17 20:00 97.5 85 20 111/66 (81) 95 05/04/17 19:55 93 Nasal Cannula 5.00 05/04/17 15:40 98.6 69 20 106/50 (68) 93 05/04/17 11:41 98.8 57 19 106/50 (68) 92 I/O 05/04/17 05/04/17 05/04/17 05/05/17 05/05/17 05/05/17 07:00 15:00 23:00 07:00 15:00 23:00 Intake Total 400 ml 50 ml 100 ml 300 ml Balance 400 ml 50 ml 100 ml 300 ml Intake Oral 400 ml 300 ml IV Total 50 ml 100 ml # Voids 2 7 1 # Bowel Movements 0 Result Diagram: 05/04/17 1200 05/05/17 0702 Imaging Last Impressions Chest X-Ray 05/04/17 0000 Signed Impressions: Service Date/Time: Thursday, May 04, 2017 10:17 - CONCLUSION: Little change from yesterday's exam Delmar Berrios MD Objective Remarks GENERAL: in NAD CARDIOVASCULAR: Regular rate and rhythm without murmurs, gallops, or rubs. RESPIRATORY: Anterior lungs with rhonchi.. No accessory muscle use. GASTROINTESTINAL: Abdomen soft, non-tender, nondistended. MUSCULOSKELETAL: No cyanosis, or edema. Medications and IVs Current Medications Sodium Chloride (NS Flush) 2 ml UNSCH PRN IVF FLUSH AFTER USING IV ACCESS Last administered on 05/05/17at 09:17; Start 05/02/17 at 15:00 Methylprednisolone Sodium Succinate (SoluMEDROL INJ) 125 mg ONCE ONCE IV PUSH Last administered on 05/02/17at 14:59; Start 05/02/17 at 15:00; Stop 05/02/17 at 15: 01; Status DC Albuterol/ Ipratropium (Duoneb Neb) 1 ampule Q15M INH Last administered on at 15:15; Start 05/02/17 at 15:00; Stop 05/02/17 at 15:16; Status DC Piperacillin Sod/ Tazobactam Sod 100 ml @ 200 mls/hr ONCE STAT IV Last administered on 05/02/17at 15:59; Start 05/02/17 at 15:38; Stop 05/02/17 at 16:07; Status DC Azithromycin 500 mg/Sodium Chloride 250 ml @ 250 mls/hr ONCE STAT IV Last administered on 05/02/17at 15:58; Start 05/02/17 at 15:38; Stop 05/02/17 at 16:39; Status DC Albuterol/ Ipratropium (Duoneb Neb) 1 ampule Q6HR WHILE AWAKE NEB NEB Last administered on 05/05/17at 07:51; Start 05/02/17 at 20:00 Albuterol Sulfate (Albuterol Neb) 1.25 mg Q2HR NEB PRN NEB SHORTNESS OF BREATH Last administered on 05/04/17at 05:13; Start 05/02/17 at 16:30 Ondansetron HCl (Zofran Inj) 4 mg Q8HR PRN IV PUSH NAUSEA; Start 05/02/17 at 16: 30 Acetaminophen (Tylenol) 650 mg Q4H PRN PO FEVER; Start 05/02/17 at 16:30 Piperacillin Sod/ Tazobactam Sod 50 ml @ 100 mls/hr Q6H IV Last administered on 05/05/17at 09:16; Start 05/02/17 at 22:00 Carvedilol (Coreg) 6.25 mg BID PO Last administered on 05/05/17at 09:16; Start at 21:00 Enoxaparin Sodium (Lovenox Inj) 30 mg Q24H SQ Last administered on 05/04/17at 16: 06; Start 05/02/17 at 17:00 Levothyroxine Sodium (Synthroid) 50 mcg DAILY@0600 PO Last administered on 05:40; Start 05/03/17 at 06:00 Loratadine (Claritin) 10 mg DAILY PO Last administered on 05/05/17 09:16; Start 05/03/17 at 09:00 Prednisone (Deltasone) 5 mg DAILY PO Last administered on 05/04/17 08:16; Start 05/03/17 at 09:00 Zafirlukast (Accolate) 10 mg BID PO Last administered on 05/05/17 09:16; Start 05/02/17 at 21:00 Ferrous Sulfate (Ferrous Sulfate) 325 mg DAILY PO Last administered on 09:16; Start 05/03/17 at 09:00 Fluoxetine HCl (PROzac) 20 mg DAILY PO Last administered on 05/05/17 09:16; Start 05/03/17 at 09:00 Patient Own Medication PT OWN MED: LEVETIRACETAM 750MG ER... BID PO ; Start 05/02 at 21:00; Status Future Hold Patient Own Medication PT OWN MED: MEMAN... DAILY PO ; Start 05/03/17 at 09:00; Status Future Hold Pantoprazole Sodium (Protonix) 20 mg DAILY PO Last administered on 05/05/17 09: 16; Start 05/03/17 at 09:00 Benzonatate (Tessalon) 100 mg TID PRN PO COUGH Last administered on 05/04/17 08 :17; Start 05/02/17 at 16:45 Miscellaneous (Pill Splitter) 1 ea UNSCH PRN OTHER SEE LABEL COMMENTS; Start at 21:30 Guaifenesin (Mucinex Er) 600 mg BID PO Last administered on 05/05/17 09:16; Start 05/03/17 at 11:00 Guaifenesin/ Codeine Phosphate (Robitussin Ac 200-20 Mg/10 ml Liq) 10 ml Q4H PRN PO cough Last administered on 05/04/17at 13:43; Start 05/03/17 at 15:30 Potassium Bicarb/ Potassium Chloride (K-Lyte Cl Eff) 25 meq ONCE ONCE PO ; Start 05/05/17 at 09:30; Stop 05/05/17 at 09:31; Status UNV A/P Problem List: (1) Pneumonia ICD Code: J18.9 - Pneumonia, unspecified organism Status: Acute Assessment and Plan This is a 82-year-old female who is poor historian and presented with cough and now has acute respiratory failure with hypoxia Acute respiratory failure with hypoxia -most likely secondary to aspiration pneumonia. Patient was on regular diet and had speech eval recommend puree. -Chest x-ray done yesterday showed possible bibasilar pneumonia. She was treated empirically with IV antibiotics with azithromycin and Zosyn but developed hypoxia and required oxygen. -Patient is not on any home oxygen and she failed walk test. -repeat cxr was stable. -Patient still on 5 L oxygen but clinically is improving. Discussed case with patient's nurse that her oxygen can be titrated down for goal of greater than 88 %. ? bibasilar pneumonia with history of COPD -See treatment as above.. ? aspiration PNA. on azithromycin and zosyn. see above. -Coding Quality Coordinator consulted appreciate recommendations. History of COPD -Patient lungs are clear. with home dose of prednisone. CKD - renal function at her baseline -Avoid nephrotoxins. -Continue to trend Cr. hypertension/CAD/seizure disorder/hypothyroidism/ dementia -Continue with home medication DVT prophylaxis with subq Lovenox Discharge Planning pending transfer to med/surg. Problem Qualifiers (1) Pneumonia: Qualified Codes: J18.9 - Pneumonia, unspecified organism Laya Awan MD May 05, 2017 09:34
[2017-05-05] MEDS ORDERED: POTASSIUM CHLORIDE 25 MEQ EFFERVESCENT TAB PO ONE (10:00)
[2017-05-05] MEDS: predniSONE 1 MG TAB PO SCH (11:14)
[2017-05-05] MEDS: guaiFENesin/CODEINE SYRUP 200 MG/20 MG/10 ML CUP PO PRN ×3 (11:28→23:42)
[2017-05-05] MEDS: BENZONATATE 100 MG CAP PO PRN ×2 (17:21→23:43)
[2017-05-05] MEDS: ENOXAPARIN SODIUM 30 MG/0.3 ML SYRINGE SQ SCH (17:22)
[2017-05-06] VITALS (7 sets, daily range): BP systolic 107–140; BP diastolic 55–64; PULSE 60–68; RESP 14–18; TEMP 97.4–98.9; O2SAT 91–97
[2017-05-06] MEDS: PIPERACIL-TAZO 3.375 GM PREMIX 50 ML IV SCH ×4 (03:12→21:17)
[2017-05-06] MEDS: LEVOTHYROXINE SODIUM 50 MCG TAB PO SCH (05:42)
[2017-05-06] MEDS: guaiFENesin/CODEINE SYRUP 200 MG/20 MG/10 ML CUP PO PRN (05:42)
[2017-05-06 07:25] LABS: HEMATOCRIT 32.6 % (35.0-46.0); HEMOGLOBIN 10.3 GM/DL (11.6-15.3); MEAN CELL VOLUME 83.8 FL (80.0-100.0); MEAN CORPUSCULAR HEMOGLOBIN 26.4 PG (27.0-34.0); MEAN CORPUSCULAR HGB CONC 31.5 % (32.0-36.0); MEAN PLATELET VOLUME 8.1 FL (7.0-11.0); PLATELET COUNT 347 TH/MM3 (150-450); RED BLOOD COUNT 3.89 MIL/MM3 (4.00-5.30); RED CELL DISTRIBUTION WIDTH 15.6 % (11.6-17.2); WHITE BLOOD COUNT 11.3 TH/MM3 (4.0-11.0)
[2017-05-06] MEDS: RESP: ALBUTEROL 2.5 MG/IPRATROPIUM 0.5 MG NEB (SCH) NEB ×2 (07:36→13:01)
[2017-05-06] MEDS: guaiFENesin E.R. 600 MG TAB PO SCH ×2 (08:46→21:16)
[2017-05-06] MEDS: FLUoxetine HCL 20 MG CAP PO SCH (08:46)
[2017-05-06] MEDS: CARVEDILOL 6.25 MG TAB PO SCH ×2 (08:46→21:17)
[2017-05-06] MEDS: LORATADINE 10 MG TAB PO SCH (08:46)
[2017-05-06] MEDS: BENZONATATE 100 MG CAP PO PRN (08:46)
[2017-05-06] MEDS: ZAFIRLUKAST 20 MG TAB PO SCH ×2 (08:46→21:17)
[2017-05-06] MEDS: predniSONE 1 MG TAB PO SCH (08:47)
[2017-05-06] MEDS: FERROUS SULFATE 325 MG (65 MG ELEMENTAL IRON) TAB PO SCH (08:47)
[2017-05-06] MEDS: PANTOPRAZOLE SOD 20 MG DELAYED RELEASE TAB PO SCH (08:47)
[2017-05-06] MEDS ORDERED: AZITHROMYCIN 250 MG TAB PO ONE (10:30)
--- NOTE | 2017-05-06 16:22 | HHI.PR ---
Subjective Remarks Patient states that she is feeling better compared to when she came in however she still has a very horrible cough. Shortness of breath is improving. No nausea or vomiting. Objective Vitals Vital Signs Date Time Temp Pulse Resp B/P (MAP) Pulse Ox O2 Delivery O2 Flow Rate FiO2 05/06/17 16:00 98.4 63 17 135/62 (86) 97 05/06/17 12:00 98.8 66 18 107/55 (72) 91 05/06/17 08:00 Nasal Cannula 3.00 05/06/17 08:00 97.7 60 16 140/64 (89) 93 05/06/17 07:37 95 Nasal Cannula 3.00 05/06/17 00:00 98.9 67 14 132/64 (86) 93 05/05/17 22:02 95 Nasal Cannula 3.00 05/05/17 21:00 Nasal Cannula 2.00 05/05/17 20:00 98.7 66 14 140/65 (90) 92 05/05/17 17:15 97.2 67 16 133/59 (83) 97 I/O 05/05/17 05/05/17 05/05/17 05/06/17 05/06/17 05/06/17 07:00 15:00 23:00 07:00 15:00 23:00 Intake Total 300 ml 50 ml 150 ml Balance 300 ml 50 ml 150 ml Intake Oral 300 ml 100 ml IV Total 50 ml 50 ml # Voids 1 1 # Bowel Movements 1 Result Diagram: 05/06/17 0535 05/05/17 0702 Imaging Last Impressions Chest X-Ray 05/04/17 0000 Signed Impressions: Service Date/Time: Thursday, May 04, 2017 10:17 - CONCLUSION: Little change from yesterday's exam Delmar Berrios MD Objective Remarks GENERAL: in NAD CARDIOVASCULAR: Regular rate and rhythm without murmurs RESPIRATORY: Anterior lungs with rhonchi. No wheezing auscultated. No accessory muscle use. She does have a cough when I examine her GASTROINTESTINAL: Abdomen soft, non-tender, nondistended. MUSCULOSKELETAL: No edema. A/P Problem List: (1) Pneumonia ICD Code: J18.9 - Pneumonia, unspecified organism Status: Acute Assessment and Plan This is a 82-year-old female who is poor historian and presented with cough w acute respiratory failure with hypoxia Acute respiratory failure with hypoxia -most likely secondary to aspiration pneumonia. Patient was on regular diet and speech therapy was recommended pure/thin liquids. Currently she is on 3 L nasal cannula which is improved compared to yesterday. -Chest x-ray done showed possible bibasilar pneumonia. She was treated empirically with IV antibiotics with azithromycin and Zosyn however she only received a dose of azithromycin. I will resume this for her to complete 5 days of azithromycin. Continue IV Zosyn for now. -Patient is not on any home oxygen and she failed walk test. -Repeat chest x-ray in the morning -Continue to titrate the patient's oxygen. Physical therapy recommended rehab. This has been discussed with case management. Continue DuoNeb treatments. I will add Acapella/incentive spirometer and encourage patient to use regularly. -Automatic Seamer evaluated the patient and appreciate recommendations. Continue home prednisone. CKD - renal function at her baseline -Avoid nephrotoxins. -Continue to trend Cr. hypertension/CAD/seizure disorder/hypothyroidism/ dementia -Continue with home medication DVT prophylaxis with subq Lovenox Discharge Planning Anticipate discharge in the morning. Problem Qualifiers (1) Pneumonia: Qualified Codes: J18.9 - Pneumonia, unspecified organism Ronel Sutherland MD May 06, 2017 16:22
[2017-05-06] MEDS: ENOXAPARIN SODIUM 30 MG/0.3 ML SYRINGE SQ SCH (16:40)
--- NOTE | 2017-05-06 16:58 | HHI.PR ---
Subjective Remarks ALERT ON O2 NO SOB Objective GENERAL: SKIN: Warm and dry. HEAD: Atraumatic. Normocephalic. EYES: Pupils equal and round. No scleral icterus. No injection or drainage. ENT: No nasal bleeding or discharge. Mucous membranes pink and moist. NECK: Trachea midline. No JVD. CARDIOVASCULAR: Regular rate and rhythm. RESPIRATORY: No accessory muscle use. Clear to auscultation. Breath sounds equal bilaterally. GASTROINTESTINAL: Abdomen soft, non-tender, nondistended. Hepatic and splenic margins not palpable. MUSCULOSKELETAL: Extremities without clubbing, cyanosis, or edema. No obvious deformities. NEUROLOGICAL: Awake and alert. No obvious cranial nerve deficits. Motor grossly within normal limits. Five out of 5 muscle strength in the arms and legs. Normal speech. PSYCHIATRIC: Appropriate mood and affect; insight and judgment normal. Vital Signs Date Time Temp Pulse Resp B/P (MAP) Pulse Ox O2 Delivery O2 Flow Rate FiO2 05/06/17 16:00 98.4 63 17 135/62 (86) 97 05/06/17 12:00 98.8 66 18 107/55 (72) 91 05/06/17 08:00 Nasal Cannula 3.00 05/06/17 08:00 97.7 60 16 140/64 (89) 93 05/06/17 07:37 95 Nasal Cannula 3.00 05/06/17 00:00 98.9 67 14 132/64 (86) 93 05/05/17 22:02 95 Nasal Cannula 3.00 05/05/17 21:00 Nasal Cannula 2.00 05/05/17 20:00 98.7 66 14 140/65 (90) 92 05/05/17 17:15 97.2 67 16 133/59 (83) 97 I/O 05/05/17 05/05/17 05/05/17 05/06/17 05/06/17 05/06/17 07:00 15:00 23:00 07:00 15:00 23:00 Intake Total 300 ml 50 ml 150 ml Balance 300 ml 50 ml 150 ml Intake Oral 300 ml 100 ml IV Total 50 ml 50 ml # Voids 1 1 # Bowel Movements 1 Result Diagram: 05/06/17 0535 05/05/17 0702 Objective Remarks GENERAL: SKIN: Warm and dry. HEAD: Atraumatic. Normocephalic. EYES: Pupils equal and round. No scleral icterus. No injection or drainage. ENT: No nasal bleeding or discharge. Mucous membranes pink and moist. NECK: Trachea midline. No JVD. CARDIOVASCULAR: Regular rate and rhythm. RESPIRATORY: No accessory muscle use. Clear to auscultation. Breath sounds equal bilaterally. GASTROINTESTINAL: Abdomen soft, non-tender, nondistended. Hepatic and splenic margins not palpable. MUSCULOSKELETAL: Extremities without clubbing, cyanosis, or edema. No obvious deformities. NEUROLOGICAL: Awake and alert. No obvious cranial nerve deficits. Motor grossly within normal limits. Five out of 5 muscle strength in the arms and legs. Normal speech. PSYCHIATRIC: Appropriate mood and affect; insight and judgment normal. Assessment and Plan Assessment and Plan COPD PNA DEMENTIA PLAN O2 NEEDED ANTBX BRONCHODILATORS INCREASE ACTIVITY Brigitte Briggs MD May 06, 2017 16:58
[2017-05-06] MEDS: SODIUM CHLORIDE 0.9% FLUSH 10 ML FLUSH IVF PRN (21:17)
[2017-05-07] VITALS: BP 112/60; PULSE 62; RESP 14; TEMP 98.1; O2SAT 93
[2017-05-07] MEDS: SODIUM CHLORIDE 0.9% FLUSH 10 ML FLUSH IVF PRN (02:38)
[2017-05-07] MEDS: PIPERACIL-TAZO 3.375 GM PREMIX 50 ML IV SCH ×3 (02:38→16:02)
[2017-05-07] MEDS: guaiFENesin/CODEINE SYRUP 200 MG/20 MG/10 ML CUP PO PRN ×2 (02:39→10:04)
[2017-05-07 05:47] LABS: BICARBONATE 25.9 MEQ/L (21.0-32.0); CALCIUM 8.7 MG/DL (8.5-10.1); CREATININE 1.38 MG/DL (0.50-1.00); MAGNESIUM 2.2 MG/DL (1.5-2.5)
[2017-05-07] MEDS: LEVOTHYROXINE SODIUM 50 MCG TAB PO SCH (06:37)
[2017-05-07 08:00] VITALS: BP 151/69; PULSE 66; RESP 19; TEMP 98.1; O2SAT 94
[2017-05-07] MEDS ORDERED: AZITHROMYCIN 250 MG TAB PO SCH (09:00)
[2017-05-07] MEDS: ZAFIRLUKAST 20 MG TAB PO SCH (09:43)
[2017-05-07] MEDS: FERROUS SULFATE 325 MG (65 MG ELEMENTAL IRON) TAB PO SCH (09:43)
[2017-05-07] MEDS: FLUoxetine HCL 20 MG CAP PO SCH (09:43)
[2017-05-07] MEDS: guaiFENesin E.R. 600 MG TAB PO SCH (09:43)
[2017-05-07] MEDS: PANTOPRAZOLE SOD 20 MG DELAYED RELEASE TAB PO SCH (09:43)
[2017-05-07] MEDS: LORATADINE 10 MG TAB PO SCH (09:43)
[2017-05-07] MEDS: CARVEDILOL 6.25 MG TAB PO SCH (09:44)
[2017-05-07] MEDS ORDERED: predniSONE 5 MG TAB PO SCH (10:00)
[2017-05-07 12:00] VITALS: BP 99/50; PULSE 66; RESP 18; TEMP 97.6; O2SAT 96
[2017-05-07] MEDS ORDERED: AZIT250T3 PO (15:06)
--- NOTE | 2017-05-07 15:13 | HHI.DS ---
Discharge Summary Admission Date May 03, 2017 at 11:31 Discharge Date: May 07, 2017 Admitting Diagnosis pneumonia (1) Pneumonia ICD Code: J18.9 - Pneumonia, unspecified organism Diagnosis: Principal Status: Acute Procedures none Brief History - From Admission patient is a 82 y/o female, [facility] resident with history of COPD and dementia, who was [facility] because of cough. patient is not a good historian and most of the information was obtained from the ER documents. at the time of my evaluation she was resting comfortably with no acute distress. there's no report of fever. she denies any pain but she's complaining of cough. CBC/BMP: 05/06/17 0535 05/07/17 0426 Significant Findings Laboratory Tests Test 05/05/17 07:02 05/06/17 05:35 05/07/17 04:26 Blood Urea Nitrogen 24 MG/DL (7-18) Creatinine 1.52 MG/DL (0.50-1.00) 1.38 MG/DL (0.50-1.00) Calcium Level 8.4 MG/DL (8.5-10.1) Potassium Level 3.4 MEQ/L (3.5-5.1) 3.3 MEQ/L (3.5-5.1) Chloride Level 109 MEQ/L (98-107) Estimat Glomerular Filtration Rate 33 ML/MIN (>89) 37 ML/MIN (>89) White Blood Count 11.3 TH/MM3 (4.0-11.0) Red Blood Count 3.89 MIL/MM3 (4.00-5.30) Hemoglobin 10.3 GM/DL (11.6-15.3) Hematocrit 32.6 % (35.0-46.0) Mean Corpuscular Hemoglobin 26.4 PG (27.0-34.0) Mean Corpuscular Hemoglobin Concent 31.5 % (32.0-36.0) Imaging Last Impressions Chest X-Ray 05/04/17 0000 Signed Impressions: Service Date/Time: Yuridia, May 04, 2017 10:17 - CONCLUSION: Little change from yesterday's exam Delmar Berrios MD PE at Discharge GENERAL: in NAD CARDIOVASCULAR: Regular rate and rhythm without murmurs RESPIRATORY: Anterior lungs with rhonchi. No wheezing auscultated. No accessory muscle use. She does have a cough when I examine her GASTROINTESTINAL: Abdomen soft, non-tender, nondistended. MUSCULOSKELETAL: No edema. Pt update on day of discharge Pt feeling a lot better since admission. Feels comfortable being discharged today. No CP, no worsening SOB. Currently on room air and satting 96%. Still has a cough but has been doing her breathing exercises. Hospital Course This is a 82-year-old female who is poor historian and presented with cough w acute respiratory failure with hypoxia. Pt was treated for PNA and was treated w zosyn and azithro. Pt was evaluated by speech therapy and they recommended puree/thin liquids. currently on RA but does require oxygen on exertion. Home O2 has been ordered as she failed the "walk test". -Chest x-ray done showed possible bibasilar pneumonia. -Script for levaquin and flagyl were written upon discharge. continue Acapella/incentive spirometer and encourage patient to use regularly. continue home prednisone f/u w PCP and pulm as an outpatient. Pt Condition on Discharge: Stable Discharge Disposition: Discharge to SNF Discharge Time: > 30 minutes Discharge Instructions DIET: Follow Instructions for: As Tolerated, No Restrictions Activities you can perform: Regular-No Restrictions Follow up Referrals: PCP Follow-up - 1 Week Pulmonology - 1 Week with Brigitte Briggs MD New Medications: Levofloxacin (Levaquin) 750 Mg Tablet 750 MG PO Q48H for Infection, #5 TAB 0 Refills Metronidazole (Flagyl) 500 Mg Tab 500 MG PO TID for Infection, #21 TAB 0 Refills Oxygen (O2) (Oxygen (O2)) Device LITER LENNY.CANULA CONTINUOUS for Prevent Hypoxemia, #2 Oxygen Concentrator Portable Gaseous 2 L/min via Nasal Canula Continuous For 99 months Continued Medications: Acetaminophen (Tylenol) 325 Mg Tab 650 MG PO Q4HR for Fever, TAB Carvedilol 6.25 mg (Carvedilol 6.25 mg) 6.25 Mg Tab 1 TAB PO BID, TAB Enoxaparin Sodium (Lovenox) 30 Mg/0.3 Ml Inj 30 MG SQ Q24H for Prevent Blood Clot, #25 INJECTION Ferrous Sulfate (Ferrous Sulfate) 325 Mg Tab 325 MG PO DAILY, TAB Fluoxetine Hcl (Fluoxetine Hcl) 20MG Cap 20 MG PO DAILY, CAP Guaifenesin (Mucinex 600 Mg Tab) 600 Mg Tabcr 600 MG PO BID for 7 Days, TAB Levetiracetam (Levetiracetam Er) 750 Mg Tab 750 MG PO BID, TAB Levothyroxine Sodium (Levothyroxine 50 mcg) 50 Mcg Tab 50 MCG PO DAILY, TAB Loratadine (Loratadine) 10 Mg Tab 10 MG PO DAILY, TAB Magnesium Oxide (Mg Supplement (Mag-Ox 400) 400 Mg Tab 400 MG PO DAILY for 30 Days, TAB Memantine HCl (Namenda XR) 28 Mg Caper 28 MG PO DAILY, CAPCR Administer without regard to meals. Extended release capsules may be swallowed whole or entire contents of capsule may be sprinkled on applesauce and swallowed immediately; do not chew, crush, or divide. Omeprazole (Hm Omeprazole) 20 Mg Tab 20 MG PO DAILY, TAB Prednisone (Prednisone) 1 Mg Tab 5 MG PO DAILY, TAB Zafirlukast (Accolate 20 mg) 20 Mg Tab 10 MG PO BID, TAB TAKE AT LEAST 1 HOUR BEFORE OR 2 HOURS AFTER MEALS Discontinued Medications: Levofloxacin (Levaquin 750 Mg Tab) 750 Mg Tab 750 MG PO Q48H, #7 TAB [Hydrocodone/Acetaminophen] () 1 TAB TAB 1 TAB PO Q4H PRN for PAIN LESS THAN 5 ON SCALE, #50 TAB Ronel Sutherland MD May 07, 2017 15:13
[2017-05-07] MEDS ORDERED: AZIT500T2 PO (15:14)
[2017-05-07] MEDS ORDERED: OXYGENDME NAS.CANULA (15:16)
[2017-05-07] MEDS ORDERED: LEVA750T9 PO (15:42)
[2017-05-07] MEDS ORDERED: METR-1 PO (15:42)
[2017-05-07 16:00] VITALS: BP 99/48; PULSE 65; RESP 19; TEMP 98.1; O2SAT 94
[2017-05-07] MEDS ORDERED: POTASSIUM CHLORIDE 20 MEQ CONTROLLED RELEASE TAB PO ONE (16:00)
[2017-05-07] MEDS: ENOXAPARIN SODIUM 30 MG/0.3 ML SYRINGE SQ SCH (16:03)
== END 2017-05-07 20:08 | DRG 177 ==
LOC: NEPC 14:38 → NEDA 16:21 → NEPGCP 17:29 → OBSVTOIN 05-03 11:31 → N07B 05-05 16:24
PROVIDERS: ADMIT Family Medicine; ATTEND Family Medicine
DX: J69.0 Pneumonitis due to inhalation of food and vomit (principal); J96.01 Acute respiratory failure with hypoxia; G91.2 (Idiopathic) normal pressure hydrocephalus; J44.1 Chronic obstructive pulmonary disease with (acute) exacerbation; J98.11 Atelectasis; I12.9 Hypertensive chronic kidney disease with stage 1 through stage 4 chronic kidney disease, or unspecified chronic kidney disease; F03.90 Unspecified dementia, unspecified severity, without behavioral disturbance, psychotic disturbance, mood disturbance, and anxiety; G40.909 Epilepsy, unspecified, not intractable, without status epilepticus; N18.9 Chronic kidney disease, unspecified; E03.9 Hypothyroidism, unspecified; I25.10 Atherosclerotic heart disease of native coronary artery without angina pectoris; K21.9 Gastro-esophageal reflux disease without esophagitis; M19.90 Unspecified osteoarthritis, unspecified site; Z90.710 Acquired absence of both cervix and uterus
CPT/HCPCS: 71045; 71046; 76937; 80048; 80053; 83605; 83735; 83880; 85025; 85027; 85610; 87040; 87070; 87205; 87804; 94618; 94640; 94664; 94667; 94668; 96365; 96366; 96368; 96375; G0378; G8996-GN; G8997-GN; J0456; J1650; J2543; J2930; J7050; J7512; J7613

== ENCOUNTER 2017-06-15 16:14 | Emergency (ER) | payer MEDICARE, OTHER ==
[~2017-06-15] VITALS: Ht 167.6 cm; Wt 85.0 kg
[~2017-06-15 16:14] MED LIST changes: -Hydrocodone/Acetaminophen PO; -LEVA750T PO; +LEVA750T9 PO; +METR-1 PO; +OXYGENDME NAS.CANULA
[2017-06-15 17:18] VITALS: BP 176/75; PULSE 90; RESP 18; TEMP 100.1; O2SAT 90
[2017-06-15 19:00] LABS: AUTOMATED NEUTROPHIL # 11.4 TH/MM3 (1.8-7.7); BASOPHIL % 0.3 % (0.0-2.0); EOSINOPHIL # 0.3 TH/MM3 (0-0.4); EOSINOPHIL % 2.1 % (0.0-4.0); HEMATOCRIT 33.1 % (35.0-46.0); HEMOGLOBIN 11.1 GM/DL (11.6-15.3); LYMPH % 12.1 % (9.0-44.0); LYMPHOCYTE # 1.7 TH/MM3 (1.0-4.8); MEAN CELL VOLUME 83.3 FL (80.0-100.0); MEAN CORPUSCULAR HEMOGLOBIN 27.9 PG (27.0-34.0); MEAN CORPUSCULAR HGB CONC 33.5 % (32.0-36.0); MEAN PLATELET VOLUME 8.5 FL (7.0-11.0); MONO % 5.3 % (0.0-8.0); MONOCYTE # 0.8 TH/MM3 (0-0.9); NEUT % 80.2 % (16.0-70.0); PLATELET COUNT 309 TH/MM3 (150-450); RED BLOOD COUNT 3.97 MIL/MM3 (4.00-5.30); RED CELL DISTRIBUTION WIDTH 15.5 % (11.6-17.2); WHITE BLOOD COUNT 14.2 TH/MM3 (4.0-11.0)
[2017-06-15 19:10] LABS: BICARBONATE 24.6 MEQ/L (21.0-32.0); CREATININE 1.29 MG/DL (0.50-1.00)
--- NOTE | 2017-06-15 19:40 | RADRPT ---
EXAM DATE/TIME: 06/15/2017 18:37 [facility] COMPARISON: CHEST PA & LAT, May 04, 2017, 10:17. INDICATIONS : Cough. MEDICAL HISTORY : Hypertension. Chronic obstructive pulmonary disease. SURGICAL HISTORY : None. ENCOUNTER: Initial ACUITY: 1 week PAIN SCORE: 0/10 LOCATION: Bilateral chest FINDINGS: PA and lateral views of the chest demonstrate elevated right hemidiaphragm. Minimal subsegmental basi lar airspace disease. Trace pleural fluid. Tortuous aorta. No pneumothorax. CONCLUSION: 1. Elevated right hemidiaphragm. Subsegmental basilar airspace disease. Trace pleural fluid. Mook Messina MD on June 15, 2017 at 19:36 Board Certified Radiologist. This report was verified electronically.
[2017-06-15] MEDS ORDERED: ACETAMINOPHEN 325 MG TAB PO ONE (21:30)
[2017-06-15] MEDS ORDERED: PIPERACIL-TAZO 2.25 GM PREMIX 50 ML IV ONE (21:45)
[2017-06-15] MEDS ORDERED: VANCOMYCIN INJ 1,000 MG in SODIUM CHLOR 0.9% 250 ML INJ 250 ML IV ONE (21:45)
[2017-06-15 21:59] VITALS: O2SAT 100
[2017-06-15 22:00] VITALS: BP 158/70; PULSE 96; RESP 20; TEMP 101.6; O2SAT 100
[2017-06-15 22:28] LABS: AMORPHOUS SEDIMENT, URINE RARE; BACTERIA, URINE MANY /hpf; BILIRUBIN, URINE NEG (NEG); BLOOD, URINE SMALL (NEG); GLUCOSE,URINE NEG (NEG); KETONE, URINE NEG (NEG); NITRITE,URINE NEG (NEG); PH, URINE 6.5 (5.0-8.5); SQUAMOUS EPITHELIAL CELL URINE <1 /hpf (0-5); URINE COLOR LIGHT-YELLOW (YELLW/STRAW); URINE LEUKOCYTE ESTERASE LARGE (NEG); WHITE BLOOD CELL CLUMPS OCC
[2017-06-16] VITALS: BP 115/83; PULSE 91; RESP 18; O2SAT 98
--- NOTE | 2017-06-16 00:23 | PD ---
HPI . Cold/flu symptoms Chief Complaint: Cold / Flu Symptoms Time Seen by Provider: 21:36 Travel History International Travel<30 days: No Contact w/Intl Traveler<30days: No Traveled to known affect area: No History of Present Illness HPI 8-year-old female sent from [facility] secondary to cough generalized malaise not feeling well. Patient denies production of cough, notes possible unquantified fever. Denies any dysuria urgency frequency. PFSH Past Medical History Narrative Medical Past medical history reviewed Arthritis: Yes Depression: Yes COPD: Yes Diminished Hearing: No GERD: Yes Hypertension: Yes Psychiatric: Yes Migraines: Yes Renal Failure: Yes (RENAL FAILURE THAT RESOLVED, NORMAL FUNCTION NOW) Seizures: Yes Past Surgical History Abdominal Surgery: Yes (CHOLESTECTOMY) Appendectomy: Yes Cholecystectomy: Yes Gynecologic Surgery: Yes Hysterectomy: Yes Neurologic Surgery: Yes (CUFF SETTER SHUNT PLACED THEN REMOVED DUE TO INFECTION) Social History Alcohol Use: Yes Tobacco Use: No Substance Use: No Allergies-Medications (Allergen,Severity, Reaction): Coded Allergies: *MDRO Multi-Drug Resistant Organism (Verified Adverse Reaction, Unknown, ) ESBL E.Coli (urine)-06/03/16 Reported Meds & Prescriptions Reported Meds & Active Scripts Active Flagyl (Metronidazole) 500 Mg Tab 500 Mg PO TID Levaquin (Levofloxacin) 750 Mg Tablet 750 Mg PO Q48H Oxygen (O2) Device Liter LENNY.CANULA CONTINUOUS Oxygen Concentrator Portable Gaseous 2 L/min via Nasal Canula Continuous For 99 months Lovenox (Enoxaparin Sodium) 30 Mg/0.3 Ml Inj 30 Mg SQ Q24H Reported Prednisone 1 Mg Tab 5 Mg PO DAILY Mucinex 600 Mg Tab (Guaifenesin) 600 Mg Tabcr 600 Mg PO BID 7 Days Accolate 20 mg (Zafirlukast) 20 Mg Tab 10 Mg PO BID TAKE AT LEAST 1 HOUR BEFORE OR 2 HOURS AFTER MEALS Fluoxetine Hcl (Fluoxetine HCl) 20MG Cap 20 Mg PO DAILY Hm Omeprazole (Omeprazole) 20 Mg Tab 20 Mg PO DAILY Tylenol (Acetaminophen) 325 Mg Tab 650 Mg PO Q4HR Boudreauxs Butt Bath Body (Soap & Cleansers) 16 % Oin 16 % TOP BID Levetiracetam Er (Levetiracetam) 750 Mg Tab 750 Mg PO BID Carvedilol 6.25 mg (Carvedilol) 6.25 Mg Tab 1 Tab PO BID Namenda XR (Memantine HCl) 28 Mg Caper 28 Mg PO DAILY Administer without regard to meals. Extended release capsules may be swallowed whole or entire contents of capsule may be sprinkled on applesauce and swallowed immediately; do not chew, crush, or divide. Mag-Ox 400 (Magnesium Oxide) 400 Mg Tab 400 Mg PO DAILY 30 Days Loratadine 10 Mg Tab 10 Mg PO DAILY Levothyroxine 50 mcg (Levothyroxine Sodium) 50 Mcg Tab 50 Mcg PO DAILY Ferrous Sulfate 325 Mg Tab 325 Mg PO DAILY Narrative Medication Allergies and medications reviewed Review of Systems Except as stated in HPI: all other systems reviewed are Neg General / Constitutional: Positive: Fever, No: Chills Eyes: No: Visual changes HENT: No: Headaches Cardiovascular: No: Chest Pain or Discomfort, Palpitations, Irregular Rhythm Respiratory: Positive: Cough, Shortness of Breath, No: Wheezing, Sneezing, Orthopnea, Hemoptysis, Stridor, Night Sweats, Pleuritic Pain Gastrointestinal: No: Abdominal Pain Genitourinary: No: Dysuria Musculoskeletal: No: Pain Skin: No Rash Neurologic: No: Weakness Psychiatric: No: Depression Endocrine: No: Polydipsia Hematologic/Lymphatic: No: Easy Bruising Physical Exam Narrative GENERAL: Awake alert oriented 3 no acute distress. Mildly febrile, vital signs otherwise normal and stable SKIN: Warm and dry. No diaphoresis cyanosis or pallor HEAD: Atraumatic. Normocephalic. EYES: Pupils equal and round. No scleral icterus. No injection or drainage. ENT: No nasal bleeding or discharge. Mucous membranes pink and moist. NECK: Trachea midline. No JVD. Supple nontender full range of motion CARDIOVASCULAR: Regular rate and rhythm. RESPIRATORY: No accessory muscle use. Clear to auscultation. Breath sounds equal bilaterally. GASTROINTESTINAL: Abdomen soft, non-tender, nondistended. Hepatic and splenic margins not palpable. MUSCULOSKELETAL: Extremities without clubbing, cyanosis, or edema. No obvious deformities. NEUROLOGICAL: Awake and alert. No obvious deficits. Patient has history of tardive dyskinesia and chronic contractures. PSYCHIATRIC: Appropriate mood and affect; insight and judgment normal. Data Data Last Documented VS Vital Signs Date Time Temp Pulse Resp B/P (MAP) Pulse Ox O2 Delivery O2 Flow Rate FiO2 06/15/17 22:00 101.6 96 20 158/70 (99) 100 Nasal Cannula 2.00 Orders Orders Complete Blood Count With Diff (06/15/17 18:19) Basic Metabolic Panel (Bmp) (06/15/17 18:19) Chest, Pa & Lat (06/15/17 18:19) Blood Culture (06/15/17 18:19) Iv Access Insert/Monitor (06/15/17 18:19) Ecg Monitoring (06/15/17 18:19) Oxygen Administration (06/15/17 18:19) Oximetry (06/15/17 18:19) Acetaminophen (Tylenol) (06/15/17 21:30) Influenzae A/B Antigen (06/15/17 21:28) Blood Culture (06/15/17 21:40) Piperacil-Tazo 2.25 Gm Premix (Zosyn 2.2 (06/15/17 21:45) Vancomycin Inj (Vancomycin Inj) (06/15/17 21:45) Lactic Acid (06/15/17 21:40) Urinalysis - C+S If Indicated (06/15/17 21:46) Insert Temp Sensing Iniguez Cath (06/15/17 21:46) Urine Culture (06/15/17 21:56) Labs Laboratory Tests Test 06/15/17 17:50 06/15/17 21:56 06/15/17 22:05 White Blood Count 14.2 TH/MM3 Red Blood Count 3.97 MIL/MM3 Hemoglobin 11.1 GM/DL Hematocrit 33.1 % Mean Corpuscular Volume 83.3 FL Mean Corpuscular Hemoglobin 27.9 PG Mean Corpuscular Hemoglobin Concent 33.5 % Red Cell Distribution Width 15.5 % Platelet Count 309 TH/MM3 Mean Platelet Volume 8.5 FL Neutrophils (%) (Auto) 80.2 % Lymphocytes (%) (Auto) 12.1 % Monocytes (%) (Auto) 5.3 % Eosinophils (%) (Auto) 2.1 % Basophils (%) (Auto) 0.3 % Neutrophils # (Auto) 11.4 TH/MM3 Lymphocytes # (Auto) 1.7 TH/MM3 Monocytes # (Auto) 0.8 TH/MM3 Eosinophils # (Auto) 0.3 TH/MM3 Basophils # (Auto) 0.0 TH/MM3 CBC Comment DIFF FINAL Differential Comment Blood Urea Nitrogen 21 MG/DL Creatinine 1.29 MG/DL Random Glucose 118 MG/DL Calcium Level 9.0 MG/DL Sodium Level 139 MEQ/L Potassium Level 3.8 MEQ/L Chloride Level 104 MEQ/L Carbon Dioxide Level 24.6 MEQ/L Anion Gap 10 MEQ/L Estimat Glomerular Filtration Rate 40 ML/MIN Urine Color LIGHT-YELLOW Urine Turbidity HAZY Urine pH 6.5 Urine Specific [place] 1.013 Urine Protein TRACE mg/dL Urine Glucose (UA) NEG mg/dL Urine Ketones NEG mg/dL Urine Occult Blood SMALL Urine Nitrite NEG Urine Bilirubin NEG Urine Urobilinogen LESS THAN 2.0 MG/DL Urine Leukocyte Esterase LARGE Urine RBC 10 /hpf Urine WBC /hpf Urine WBC Clumps OCC Urine Squamous Epithelial Cells <1 /hpf Urine Amorphous Sediment RARE Urine Bacteria MANY /hpf Microscopic Urinalysis Comment CATH-CULTURE IND Lactic Acid Level 1.3 mmol/L MDM Medical Decision Making Medical Screen Exam Complete: Yes Emergency Medical Condition: Yes Medical Record Reviewed: Yes Differential Diagnosis Pneumonia, sepsis, urinary tract infection Narrative Course Patient's chest x-ray shows possible early bilateral infiltrate. Urinalysis consistent with urinary tract infection. Patient was given antibiotics at presentation, appears stable. Normal oxygen saturation on room air. Case discussed with hospitalist service, will attempt outpatient therapy with p.o. Levaquin and evaluation by outpatient practitioner. Diagnosis Primary Impression: Pneumonia Qualified Codes: J18.9 - Pneumonia, unspecified organism Additional Impression: UTI (urinary tract infection) Qualified Codes: N39.0 - Urinary tract infection, site not specified Patient Instructions: General Instructions, Pneumonia (DC), Urinary Tract Infection in Women (ED) Additional Instructions: Levaquin 500 mg daily for 10 days. Follow-up with your doctor. Return for worsening Scripts Levofloxacin (Levaquin) 500 Mg Tablet 500 MG PO DAILY for Infection for 10 Days, #10 TAB 0 Refills Prov: Logan Browne MD 06/16/17 Disposition: 01 DISCHARGE HOME Condition: Stable Logan Browne MD Jun 16, 2017 00:23
[2017-06-16] MEDS ORDERED: LEVA500T33 PO (00:40)
[2017-06-16] MEDS ORDERED: LOPE-1 PO (00:55)
[2017-06-16] MEDS ORDERED: ALLO100T PO (00:55)
[2017-06-16] MEDS ORDERED: LEVE750T8 PO (00:55)
[2017-06-16] MEDS ORDERED: MAGN400T2 PO (00:55)
[2017-06-16] MEDS ORDERED: IPRAAER INH (00:55)
[2017-06-16] MEDS ORDERED: FLUO20CA12 PO (00:55)
[2017-06-16] MEDS ORDERED: FLUT50SP EACH NARE (00:55)
[2017-06-16] MEDS ORDERED: LEVO50TA4 PO (00:55)
[2017-06-16] MEDS ORDERED: CARV6.252 PO (00:55)
[2017-06-16] MEDS ORDERED: TYLE325T PO (00:56)
[2017-06-16] MEDS ORDERED: OMEP20TA93 PO (00:56)
[2017-06-16] MEDS ORDERED: MELA5 PO (00:56)
[2017-06-16] MEDS ORDERED: POLY17S PO (00:56)
[2017-06-16] MEDS ORDERED: TRIAM.1%T TOPICAL (00:56)
[2017-06-16] MEDS ORDERED: MEMA28CA PO (00:56)
[2017-06-16] MEDS ORDERED: OXYB5TAB8 PO (00:56)
[2017-06-16] MEDS ORDERED: MUCINEX PO (00:56)
[2017-06-16] MEDS ORDERED: PRED5TAB PO (00:56)
[2017-06-16 01:00] VITALS: BP 129/56; PULSE 80; RESP 18; TEMP 98.5; O2SAT 96
[2017-06-17] MEDS ORDERED: GUAI600T11 PO (10:19)
== END 2017-06-16 02:52 | disposition home or self-care (01) ==
LOC: NEPC 16:14
DX: J44.0 Chronic obstructive pulmonary disease with (acute) lower respiratory infection (principal); J18.9 Pneumonia, unspecified organism; N39.0 Urinary tract infection, site not specified; I10 Essential (primary) hypertension; K21.9 Gastro-esophageal reflux disease without esophagitis
CPT/HCPCS: 71046; 80048; 81001; 83605; 85025; 87040; 87077; 87086; 87186; 87804; 96374; 96375; 99284; J2543; J3370; J7050